=== PATIENT | female | born 1960 | race Caucasian/White ===

== ENCOUNTER → 2017-10-20 | Outpatient (CLI) | payer MEDICARE, OTHER ==
--- NOTE | 2017-10-20 13:11 | REP ---
LUMBOSACRAL SPINE: Five views of lumbosacral spine are performed. There is no compression fracture. There is no malalignment. A tiny spur is seen of L2. The disc spaces appear relatively well preserved. The posterior elements are intact. IMPRESSION: No acute fracture or dislocation. Signed by Alexey Millan MD 10/20/2017 01:55 P
--- NOTE | 2017-10-20 13:12 | REP ---
SACRUM AND COCCYX: Three views of the sacrum and coccyx are performed. There is no definite acute fracture or dislocation. Minimal sclerotic changes are seen at the sacroiliac joints. IMPRESSION: No definite acute fracture or dislocation. Signed by Alexey Millan MD 10/20/2017 01:55 P
== END ==
LOC: M WUC 11:46
PROVIDERS: ATTEND Internal Medicine
DX: M54.18 Radiculopathy, sacral and sacrococcygeal region (principal)

== ENCOUNTER 2020-10-06 19:14 | Emergency (ER) | payer MEDICARE, OTHER ==
[~2020-10-06] VITALS: Ht 157.5 cm; Wt 81.8 kg
[2020-10-06] MEDS ORDERED: LORA1TAB4 PO (19:37)
[2020-10-06] MEDS ORDERED: BRIN10TA4 PO (19:37)
[2020-10-06 20:07] LABS: BASO # 0.1 10^3/uL (0.0-0.2); BASO % 0.4 % (0.0-1.0); EOS # 0.1 10^3/uL (0.0-0.5); EOS % 0.4 % (0.0-3.0); HEMOGLOBIN 14.6 g/dl (12.0-15.5); LYMPH # 1.8 10^3/uL (1.5-5.0); LYMPH % 15.5 % (24.0-44.0); MEAN CORPUSCULAR HEMOGLOBIN 29.7 pg (27.0-33.0); MEAN CORPUSCULAR VOLUME 87.4 fl (80.0-96.0); MONO # 0.7 10^3/uL (0.0-0.8); MONO % 6.5 % (0.0-5.0); NEUTROPHILS # 8.7 10^3/uL (1.5-8.5); NEUTROPHILS % 76.8 % (36.0-66.0); PLATELET COUNT, AUTOMATED 287 10^3/uL (150-450); RED BLOOD COUNT 4.92 10^6/uL (4.00-5.40); WHITE BLOOD COUNT 11.3 10^3/uL (4.0-10.0)
[2020-10-06] MEDS ORDERED: ONDANSETRON 4 MG ORAL DISINTEGRATING TAB PO ONE (20:15)
[2020-10-06 20:30] LABS: ALBUMIN 3.4 GM/DL (3.2-5.2); BILIRUBIN,DIRECT 0.2 MG/DL (0.0-0.2); BILIRUBIN,TOTAL 0.5 MG/DL (0.2-1.0); CALCIUM LEVEL 9.3 MG/DL (8.5-10.1); CREATININE FOR GFR 1.03 MG/DL (0.55-1.30); GLOMERULAR FILTRATION RATE 58.4 (>51); POTASSIUM SERUM 4.1 MEQ/L (3.5-5.1); TOTAL PROTEIN 7.4 GM/DL (6.4-8.2)
--- NOTE | 2020-10-06 21:27 | REPVR ---
PROCEDURE INFORMATION: Exam: XR Chest, 1 View Exam date and time: 10/06/2020 7:52 PM Age: 60 years old Clinical indication: Chest pain; Type not specified TECHNIQUE: Imaging protocol: XR of the chest Views: 1 view. COMPARISON: US Chest echo B 12/11/2013 10:47 AM FINDINGS: Lungs: Unremarkable. No consolidation. Pleural space: Unremarkable. No pleural effusion. No pneumothorax. Heart/Mediastinum: Unremarkable. No cardiomegaly. Bones/joints: Unremarkable. IMPRESSION: No acute findings. Electronically signed by: Pedro Isaac On 10/06/2020 21:26:34 PM
[2020-10-06 23:00] VITALS: BP 122/71
--- NOTE | 2020-10-07 09:46 | ECGEPIP ---
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
--- NOTE | 2020-10-08 14:25 | ECGEPIP ---
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
== END 2020-10-06 23:22 | disposition home or self-care (01) ==
LOC: M ED 19:14
DX: R07.9 Chest pain, unspecified (principal); E78.5 Hyperlipidemia, unspecified; Z79.899 Other long term (current) drug therapy
CPT/HCPCS: 36415; 71045; 80048; 80076; 84484; 85025; 93005; 93041; 94760; 99285; Q0162